=== PATIENT | female | born 1995 | race Caucasian/White ===

== ENCOUNTER 2017-08-18 | Emergency (ER) | payer OTHER, BC ==
[~2017-08-18] VITALS: Ht 162.6 cm; Wt 56.7 kg
[~2017-08-18] MED LIST: ACETAMINOPHEN-1 EAC1 PO; ACETAMINOPHEN-120 ML PO; AMOXICILLIN875 MG PO; AMOXIL 875 MG875 M1; BACTRIM DS TAB1 EACH; BACTRIM DS TAB1 EACH PO; GENTAMICIN SU3 MG/ML OPHTHALMIC; HYDROCODONE-AP1 EAC6 PO; INTUNIV3 MG; MEDROLDOSEPACK PO; MUCINEX TA600 MG/TA2 PO; NOHOMEMEDICATIONS; TYLENOL325 MG PO; ZOFRAN ODT4 MG PO; z-pack
[2017-08-18] MEDS ORDERED: PRENATAL (00:08)
[2017-08-18 00:53] LABS: URINE BILIRUBIN NEGATIVE (Negative); URINE BLOOD 3+ (Negative); URINE CLARITY CLEAR; URINE COLOR YELLOW; URINE GLUCOSE-RANDOM NEGATIVE (Negative); URINE KETONES NEGATIVE (Negative); URINE LEUKOCYTES-REFLEX NEGATIVE (Negative); URINE NITRITE-REFLEX NEGATIVE (Negative); URINE PROTEIN TRACE (Negative); URINE SPECIFIC GRAVITY >= 1.030 (1.005-1.030); URINE UROBILINOGEN 0.2 E.U./dl (0.2-1.0)
[2017-08-18 01:10] LABS: SQUAMOUS >10 Many /LPF (0-3)
[2017-08-18 01:11] LABS: CASTS None Seen /LPF (None Seen)
[2017-08-18 01:13] LABS: BACTERIA-REFLEX 1-9 Few /HPF (None Seen); CRYSTALS None Seen /LPF (None Seen); URINE RBC >20 Many /HPF (0-2); URINE WBC-REFLEX None Seen /HPF (0-5)
[2017-08-18 03:36] VITALS: BP 128/45
== END 2017-08-18 03:38 | disposition home or self-care (01) ==
LOC: M.ERS
PROVIDERS: Emergency Medicine
DX: O46.8X1 Other antepartum hemorrhage, first trimester (principal); F90.9 Attention-deficit hyperactivity disorder, unspecified type; Z3A.01 Less than 8 weeks gestation of pregnancy; Z91.040 Latex allergy status

== ENCOUNTER 2018-05-11 21:56 | Emergency (ER) | payer OTHER, BC ==
[~2018-05-11] VITALS: Ht 167.6 cm; Wt 58.5 kg
[~2018-05-11 21:56] MED LIST changes: +PRENATAL
[2018-05-11] MEDS ORDERED: ZPAK PO (23:02)
[2018-05-11 23:09] VITALS: BP 150/57
== END 2018-05-11 23:09 | disposition home or self-care (01) ==
LOC: M.ERS 21:56
DX: J02.0 Streptococcal pharyngitis (principal); R59.1 Generalized enlarged lymph nodes; F90.9 Attention-deficit hyperactivity disorder, unspecified type; Z91.040 Latex allergy status